=== PATIENT | female | born 1960 | race African-American/Black ===

== ENCOUNTER 2023-12-07 10:55 | Day surgery (SDC) | payer OTHER ==
[2023-11-29 13:59] VITALS: BMI 23.5
[2023-12-07] MEDS ORDERED: PROPOFOL 40 ML ONE (11:38)
[2023-12-07] MEDS ORDERED: ONDANSETRON 4 MG/2 ML VIAL ONE (12:09)
[2023-12-07] MEDS: ONDANSETRON 4 MG/2 ML VIAL IVPUSH ONE (12:10)
[2023-12-07 12:19] VITALS: TEMP 97.1
[2023-12-07 12:46] VITALS: BP 120/65; PULSE 74; RESP 18
== END 2023-12-07 12:50 | disposition home or self-care (01) ==
LOC: FASU-ENDO 10:55
PROVIDERS: ATTEND Internal Medicine Gastroenterology
PROC: 0DBL8ZX Excision of Transverse Colon, Via Natural or Artificial Opening Endoscopic, Diagnostic (ICD-10-PCS; 2023-12-07)
PROC: 0DBM8ZX Excision of Descending Colon, Via Natural or Artificial Opening Endoscopic, Diagnostic (ICD-10-PCS; 2023-12-07)
PROC: 0DBK8ZX Excision of Ascending Colon, Via Natural or Artificial Opening Endoscopic, Diagnostic (ICD-10-PCS; principal; 2023-12-07 11:41)
DX: Z12.11 Encounter for screening for malignant neoplasm of colon (principal); K64.1 Second degree hemorrhoids; K64.8 Other hemorrhoids; R19.7 Diarrhea, unspecified
CPT/HCPCS: 88305-TC